=== PATIENT | male | born 1960 | race Caucasian/White ===

== ENCOUNTER 2022-01-21 08:55 | Inpatient (IN) | payer MEDICAID ==
[~2022-01-21] VITALS: Ht 210.8 cm; Wt 80.2 kg
[~2022-01-21 08:55] MED LIST: AMIT-189 PO; ARIP2TAB37 PO; ATOR10TA PO; BACL10TA PO; GABA-530 PO; IRON; LEVO88TA2 PO; SODI650T29 PO
[2022-01-21] MEDS ORDERED: normal saline 1000ML IV soln IVB ONE (09:15)
--- NOTE | 2022-01-21 09:15 | NUR ---
PROVIDER AT BEDSIDE.
--- NOTE | 2022-01-21 09:27 | NUR ---
xray at bedside.
--- NOTE | 2022-01-21 09:40 | NUR ---
pt to/from ct without incident.
[2022-01-21 09:48] LABS: BASOPHILS % (AUTO) 0.1 % (0-1); EOSINOPHILS # (AUTO) 0.2 X10'3 (0-0.9); EOSINOPHILS % (AUTO) 0.9 % (0-6); HEMATOCRIT 37.8 % (42.0-52.0); HEMOGLOBIN 12.6 g/dl (14.0-17.9); LYMPHOCYTES # (AUTO) 1.8 X10'3 (1.1-4.8); LYMPHOCYTES % (AUTO) 7.8 % (21-51); MEAN CORPUSCULAR HEMOGLOBIN 28.3 PG (27.0-31.0); MEAN CORPUSCULAR HGB CONC 33.4 g/dL (33.0-36.5); MEAN CORPUSCULAR VOLUME 84.7 FL (78-98); MONOCYTES # (AUTO) 1.9 X10'3 (0-0.9); NEUTROPHILS # (AUTO) 19.5 X10'3 (1.8-7.7); NEUTROPHILS % (AUTO) 83.2 % (42-75); PLATELET COUNT 317 X10'3 (140-440); RED BLOOD COUNT 4.46 X10'6 (4.70-6.10); WHITE BLOOD COUNT 23.5 X10'3 (4.5-11.0)
[2022-01-21 09:55] LABS: ALANINE AMINOTRANSFERASE 18 U/L (12-78); ALBUMIN 3.3 G/DL (3.4-5.0); ALBUMIN/GLOBULIN RATIO 0.6 (1.1-1.5); ALKALINE PHOSPHATASE 87 IU/L (46-116); ANION GAP 12 (8-16); ASPARTATE AMINO TRANSFERASE 23 U/L (10-37); BILIRUBIN,TOTAL 0.7 MG/DL (0.1-1.0); BLOOD UREA NITROGEN 35 MG/DL (7-18); BUN/CREATININE RATIO 19.7 (5.4-32.0); CHLORIDE 100 MMOL/L (99-107); CREATININE 1.78 MG/DL (0.60-1.10); GLUCOSE 97 MG/DL (70-104); POTASSIUM 4.8 MMOL/L (3.5-5.1); SODIUM 134 MMOL/L (135-145); TOTAL CARBON DIOXIDE 21.6 MMOL/L (24-32); TOTAL PROTEIN 8.8 G/DL (6.4-8.2); eGFR 39 ML/MIN
--- NOTE | 2022-01-21 10:20 | NUR ---
unable to advance arteaga cath past meatus, condom cath placed. provider informed. pt had small bm, himanshu care given with new brief placed.
[2022-01-21] MEDS ORDERED: normal saline 1000ML IV soln IV ONE (10:55)
[2022-01-21] MEDS ORDERED: ciprofloxacin lact 400MG/200ML 200 ML IV ONE (10:55)
[2022-01-21] MEDS ORDERED: metroNIDAZOLE-Flagyl 500mg/NS 100 ML IV STA (10:55)
--- NOTE | 2022-01-21 10:55 | NUR ---
attempted to call caregiver for information, left voicemail.
[2022-01-21] MEDS ORDERED: morphine 4 MG/ML inj SYRINge IV ONE (11:00)
[2022-01-21] MEDS ORDERED: ondansetron/PF 4mg/2ml inj IV ONE (11:00)
[2022-01-21 11:11] LABS: LIPASE < 50 U/L (73-393)
[2022-01-21] MEDS ORDERED: ondansetron 4mg rapidly disintigrating tab PO PRN (11:20)
[2022-01-21] MEDS ORDERED: mag hydrox/Alum hydrox/simeth 30ml oral suspension PO PRN (11:20)
[2022-01-21] MEDS ORDERED: morphine 2 MG/ML inj. syringe IV PRN ×2 (11:20)
[2022-01-21] MEDS ORDERED: bisacodyl 10mg suppository rectal RC PRN (11:20)
[2022-01-21] MEDS ORDERED: acetaminophen 650mg rectal suppository RC PRN (11:20)
[2022-01-21] MEDS ORDERED: magnesium Cl slow-release 64mg tablet PO PRN (11:20)
[2022-01-21] MEDS ORDERED: potassium CL 10mEq/100ml bag 100 ML IV PRN (11:20)
[2022-01-21] MEDS ORDERED: POTASSIUM BICARB 20meq eff tab 20 MEQ TABLET.EFF PO PRN ×2 (11:20)
[2022-01-21] MEDS ORDERED: magnesium 4gm in 100ml NS 100 ML IV PRN (11:20)
[2022-01-21] MEDS ORDERED: acetaminophen 325mg tablet PO PRN ×2 (11:20)
[2022-01-21] MEDS ORDERED: HYDROcodone/acetaminophen 10/325mg tab PO PRN (11:20)
[2022-01-21] MEDS ORDERED: magnesium hydroxide 30ml (MOM) UD suspension PO PRN (11:20)
[2022-01-21] MEDS ORDERED: magnesium 2GM in 50ml NS 50 ML IV PRN (11:20)
[2022-01-21] MEDS: normal saline 1000ml 1,000 ML IV SCH (11:20)
[2022-01-21] MEDS ORDERED: ondansetron/PF 4mg/2ml inj IV PRN (11:20)
--- NOTE | 2022-01-21 11:57 | NUR ---
dr rogers at bedside.
--- NOTE | 2022-01-21 12:23 | NUR ---
spoke to yunior gibson,pt's provider [facility] worker,as per yunior pt was diagnosed with dementia 1 year ago and was taking aricept and pt stopped taking 3 months ago.pt is other pedraza alert orietened ,take care of himself and from 4 days was detoriating c/o abd pain,n/v/d but refusing to come to er . sbar to rosmery remy . yunior shen phone no [phone] for any further question.
[2022-01-21 12:35] LABS: APTT 45 SECONDS (22-32)
[2022-01-21 13:19] LABS: CLARITY,URINE CLOUDY (Clear); GLUCOSE, URINE NEGATIVE (Neg); KETONES,URINE NEGATIVE (Neg); LEUKOCYTE ESTERASE ,URINE NEGATIVE (Neg); NITRITES, URINE NEGATIVE (Neg); OCCULT BLOOD,URINE MODERATE (Neg); PH,URINE 5.5 (4.8-8.0); PROTEIN,URINE 30 mg/dl (Neg); UROBILINOGEN,URINE 0.2 E.U/dL (0.2-1.0)
[2022-01-21 13:20] LABS: COLOR,URINE DARK YELLOW (Yellow); UA COLLECTION TYPE STRAIGHT CATH
[2022-01-21 13:33] LABS: BACTERIA,URINE FEW /HPF (Neg); WBC,URINE 0-4 /HPF (0-4)
[2022-01-21 13:34] LABS: FINE GRANULAR CAST 0-3 /LPF (NEGATIVE); RENAL CELLS, URINE FEW /HPF; SQUAMOUS EPITHELIAL CELL,UR FEW /LPF (FEW)
[2022-01-21 13:44] LABS: MAGNESIUM 2.4 MG/DL (1.5-2.4)
[2022-01-21] MEDS ORDERED: LISI20TA28 PO (15:03)
[2022-01-21] MEDS ORDERED: BUPR300T86 PO (15:03)
[2022-01-21] MEDS ORDERED: ATOR40TA72 PO (15:03)
[2022-01-21] MEDS ORDERED: FERR325T29 PO (15:03)
[2022-01-21] MEDS ORDERED: OMEP20CA16 PO (15:03)
[2022-01-21] MEDS ORDERED: DONE10TA44 PO (15:03)
[2022-01-21] MEDS ORDERED: [UNRECOGNIZED DRUG - CODE] PO ×2 (15:03)
[2022-01-21] MEDS ORDERED: CHOL20002 PO (15:03)
[2022-01-21] MEDS ORDERED: LEVO75TA7 PO (15:03)
[2022-01-21] MEDS ORDERED: LORA10TA7 PO (15:03)
[2022-01-21] MEDS ORDERED: CETI10TA14 PO (15:03)
[2022-01-21] MEDS ORDERED: DULO30CA52 PO (15:03)
[2022-01-21] MEDS: metroNIDAZOLE-Flagyl 500mg/NS 100 ML IV SCH (16:18)
--- NOTE | 2022-01-21 16:33 | NUR ---
per dr. Wasserman- for surgical consents, please call pt's brothers... Leland Wilkerson [phone] Isaac Raymundo [phone]
[2022-01-21] MEDS ORDERED: PERFLUTREN PROTEIN-A MICROSPHR (Optison) 0.22 MG/ML 3ML VIAL IV ONE (16:35)
--- NOTE | 2022-01-21 18:33 | NUR ---
telephone report to LIZBET Black
[2022-01-21 19:00] VITALS: BP 118/62
[2022-01-21] MEDS: docusate sod 100mg capsule PO SCH (20:00)
[2022-01-21] MEDS: buPROPion SR 150mg tablet PO SCH ×2 (20:00→20:35)
[2022-01-21] MEDS: K and/or MAG REPLACEMENT MC SCH (20:00)
[2022-01-21] MEDS: PSYLLIUM HUSK 0.4 GM PO SCH (20:29)
[2022-01-21] MEDS: ciprofloxacin lact 400MG/200ML 200 ML IV SCH (20:34)
[2022-01-21] MEDS: donepezil 5mg tablet PO SCH ×2 (20:35→21:00)
[2022-01-21] MEDS ORDERED: temazepam 15mg capsule PO PRN (21:00)
[2022-01-21 22:00] VITALS: BP 119/66
[2022-01-22] VITALS (32 sets, daily range): BP systolic 118–151; BP diastolic 63–78
--- NOTE | 2022-01-22 00:26 | NUR ---
2030.. PATIENT GIVEN A SIP OF WATER PRIOR TO GIVING HS MEDS AND COUGHED IMMEDIATELY AFTER, ATTEMPTED TO HAVE HIM USE A STRAW, BUT NOT ABLE TO FOLLOW INSTRUCTIONS AND WASN'T ABLE TO SUCK UP WATER INTO HIS MOUTH. D/T PATIENT'S MENTATION, MADE HIM NPO NOW UNTIL MORE ALERT
--- NOTE | 2022-01-22 00:30 | NUR ---
DR. QUICK IN EARLIER TO TALK TO PATIENT ABOUT SURG FOR REMOVAL OF HIS GALLBLADDER. PATIENT OPENS HIS EYES TO NAME/VOICE, BUT FALLS BACK TO SLEEP ALMOST IMMEDIATELY AND NOT ABLE TO PROVIDE INFORMATION FOR THE MD. ATTEMPTED TO FIND ONE WHO CAN SIGN THE PATIENT'S SURGICAL CONSENT. RISHABH PATIENT'S CAREGIVER SUGGESTED TO CALL MABEL, THE PATIENT'S SON, BUT HE INFORMED DR. ROSA THAT HIS BROTHER ENRRIQUE HAS POA. ATTEMPTED TO CALL AND GET CONSENT FOR SURGERY BUT NO ANSWER. PHONE NUMBER LEFT FOR A RETURN CALL BACK TO DR. QUICK.
[2022-01-22] MEDS: metroNIDAZOLE-Flagyl 500mg/NS 100 ML IV SCH ×4 (01:36→23:35)
[2022-01-22] MEDS: normal saline 1000ml 1,000 ML IV SCH ×3 (01:36→16:50)
[2022-01-22 06:28] LABS: HEMOGLOBIN 10.1 g/dl (14.0-17.9); WHITE BLOOD COUNT 12.3 X10'3 (4.5-11.0)
[2022-01-22 06:31] LABS: BASOPHILS % (AUTO) 0.3 % (0-1); EOSINOPHILS # (AUTO) 0.3 X10'3 (0-0.9); EOSINOPHILS % (AUTO) 2.7 % (0-6); HEMATOCRIT 30.5 % (42.0-52.0); LYMPHOCYTES # (AUTO) 1.1 X10'3 (1.1-4.8); LYMPHOCYTES % (AUTO) 9.3 % (21-51); MEAN CORPUSCULAR HGB CONC 33.2 g/dL (33.0-36.5); MEAN CORPUSCULAR VOLUME 84.4 FL (78-98); MEAN PLATELET VOLUME 7.1 FL (7.4-10.4); MONOCYTES # (AUTO) 1.1 X10'3 (0-0.9); MONOCYTES % (AUTO) 8.8 % (2-12); NEUTROPHILS # (AUTO) 9.7 X10'3 (1.8-7.7); NEUTROPHILS % (AUTO) 78.9 % (42-75); PLATELET COUNT 251 X10'3 (140-440); RED BLOOD COUNT 3.61 X10'6 (4.70-6.10); RED CELL DISTRIBUTION WIDTH 15.1 % (11.5-14.5)
--- NOTE | 2022-01-22 06:34 | NUR ---
Problems reprioritized. Patient report given, questions answered & plan of care reviewed with CARIDAD SOMERS.
--- NOTE | 2022-01-22 06:49 | NUR ---
Patient in room ORTHO 4022. I have received report from LIZBET Black and had the opportunity to ask questions and assume patient care.
[2022-01-22] MEDS ORDERED: levoTHYROXINE 75mcg tablet PO SCH (07:00)
[2022-01-22] MEDS ORDERED: ROPIVAcaine 0.5% (5mg/ml) 30ml vial ONE (07:20)
[2022-01-22 07:30] LABS: ALANINE AMINOTRANSFERASE 37 U/L (12-78); ALBUMIN 2.4 G/DL (3.4-5.0); ALBUMIN/GLOBULIN RATIO 0.5 (1.1-1.5); ALKALINE PHOSPHATASE 114 IU/L (46-116); ANION GAP 12 (8-16); ASPARTATE AMINO TRANSFERASE 45 U/L (10-37); BILIRUBIN,TOTAL 0.6 MG/DL (0.1-1.0); BLOOD UREA NITROGEN 23 MG/DL (7-18); BUN/CREATININE RATIO 18.3 (5.4-32.0); CALCIUM 7.9 MG/DL (8.5-10.1); CHLORIDE 110 MMOL/L (99-107); CREATININE 1.26 MG/DL (0.60-1.10); GLUCOSE 82 MG/DL (70-104); MAGNESIUM 2.2 MG/DL (1.5-2.4); POTASSIUM 3.7 MMOL/L (3.5-5.1); SODIUM 140 MMOL/L (135-145); TOTAL CARBON DIOXIDE 17.8 MMOL/L (24-32); TOTAL PROTEIN 6.8 G/DL (6.4-8.2); eGFR 58 ML/MIN
--- NOTE | 2022-01-22 07:50 | NUR ---
Pt transported to OR on hospital bed. Belongings left in room 2280O
[2022-01-22] MEDS: ciprofloxacin lact 400MG/200ML 200 ML IV SCH ×2 (08:00→19:19)
[2022-01-22] MEDS: buPROPion SR 150mg tablet PO SCH ×2 (08:00→19:20)
[2022-01-22] MEDS: lisinopril 20mg tablet PO SCH (08:00)
[2022-01-22] MEDS: docusate sod 100mg capsule PO SCH ×2 (08:00→19:22)
[2022-01-22] MEDS: PSYLLIUM HUSK 0.4 GM PO SCH ×2 (08:00→19:22)
[2022-01-22] MEDS: pantoprazole 40mg Tablet.DR PO SCH (08:00)
[2022-01-22] MEDS: duloxetine 30mg CAPSULE.DR PO SCH (08:00)
[2022-01-22] MEDS: K and/or MAG REPLACEMENT MC SCH ×2 (08:00→19:22)
[2022-01-22] MEDS ORDERED: sevoflurane 250ml liquid IH ONE (08:01)
[2022-01-22] MEDS ORDERED: ringers solution, lacted 1,000 ML IV SCH (08:05)
[2022-01-22] MEDS ORDERED: labetalol 20mg/4ml (5mg/ml) syringe IV PRN (08:05)
[2022-01-22] MEDS ORDERED: hydrALAZINE 20mg/ml inj. IV PRN (08:05)
[2022-01-22] MEDS ORDERED: morphine 4 MG/ML inj SYRINge IV PRN (08:05)
[2022-01-22] MEDS ORDERED: acetaminophen 1,000mg/100ml IV 100 ML IV PRN (08:05)
[2022-01-22] MEDS ORDERED: meperidine/PF 25mg/ml syringe IV PRN (08:05)
[2022-01-22] MEDS ORDERED: morphine 2 MG/ML inj. syringe IV PRN (08:05)
[2022-01-22] MEDS ORDERED: proCHLORperazine 10 MG/2 ml inj IV PRN (08:05)
[2022-01-22] MEDS ORDERED: HYDROmorphone/PF 0.2 MG/ML SYRINGE IV PRN ×2 (08:05)
[2022-01-22] MEDS ORDERED: ondansetron/PF 4mg/2ml inj IV PRN (08:05)
[2022-01-22] MEDS ORDERED: rocuronium 10mg/ml inj IV ONE ×2 (08:31→09:49)
[2022-01-22] MEDS ORDERED: ondansetron/PF 4mg/2ml inj ONE (08:31)
[2022-01-22] MEDS ORDERED: LIDOcaine 1%/PF 5ML 10 MG/ML VIAL ONE ×2 (08:31)
[2022-01-22] MEDS ORDERED: propofol inj 20 ML IV ONE (08:31)
[2022-01-22] MEDS ORDERED: fentaNYL /PF 50mcg/ml 5ml ampule ONE (08:31)
[2022-01-22] MEDS ORDERED: dexamethasone sod phosphate 4mg/ml inj. ONE (08:31)
[2022-01-22] MEDS ORDERED: sugammadex 200mg/2ml injection IV ONE (09:50)
[2022-01-22] MEDS ORDERED: morphine 4 MG/ML inj SYRINge ONE (10:00)
--- NOTE | 2022-01-22 10:12 | NUR ---
Received from OR via BED, 18G TO LEFT AC WITH LR, ABD LAP SITES X 3 WITH DELMIS AND STERI STRIPS, DSG TO RIGHT ABD WITH MIN DRAINAGE, MICEHLLE RIGHT WITH BLOODY DRAINAGE, CONDOM CATH WITH YELLOW URINE. , accompanied by Anesthesiologist DR MCGEE AND TERI SOMERS OR and report given by Anesthesiolgist. Addendum: 01/22/22 at 1037 by Patsy Colunga RN Amended: Links added.
--- NOTE | 2022-01-22 11:49 | NUR ---
Noted pt low BMI 18.4 however current ht 83in not accurate true ht hx 69in and pending first scaled wt this admit. Current BMI using true ht and non-scaled wt 26.7 at this time. Addendum: 01/22/22 at [address] Amended: Links added.
--- NOTE | 2022-01-22 11:53 | NUR ---
Report called to LIZBET Casas in CICU
--- NOTE | 2022-01-22 12:16 | NUR ---
PT RETURNED TO RECOVERY ROOM ROOM WAS NOT CLEANED IN ICU. WILL CONTINUE TO MONITOR PER RR ORDERS Addendum: 01/22/22 at 1240 by Patsy Colunga RN Amended: Links added.
--- NOTE | 2022-01-22 12:52 | NUR ---
PATIENT HAS MET ALL CRITERIA FOR TRANSFER TO ICU FLOOR. VSS. DRESSINGS INTACT. BED LOW, CALL LIGHT PRESENT AND 2 RAILS UP. RN PRESENT TO ACCEPT CARE OF PATIENT AND REPORT HAS BEEN CALLED. ALL QUESTIONS ANSWERED TO ACCEPTING RN. Addendum: 01/22/22 at 1255 by Patsy Colunga RN Amended: Links added.
--- NOTE | 2022-01-22 13:01 | NUR ---
Dr. Maldonado notified of patient's arrival. States he will see him in 30-60 minutes. Pt is doing very well, no immediate needs identified.
[2022-01-22 15:32] LABS: BASOPHILS % (AUTO) 0.1 % (0-1); EOSINOPHILS % (AUTO) 0.1 % (0-6); HEMATOCRIT 28.6 % (42.0-52.0); HEMOGLOBIN 9.7 g/dl (14.0-17.9); LYMPHOCYTES # (AUTO) 0.4 X10'3 (1.1-4.8); LYMPHOCYTES % (AUTO) 3.8 % (21-51); MEAN CORPUSCULAR HGB CONC 34.1 g/dL (33.0-36.5); MEAN CORPUSCULAR VOLUME 85.1 FL (78-98); MEAN PLATELET VOLUME 6.8 FL (7.4-10.4); MONOCYTES # (AUTO) 0.3 X10'3 (0-0.9); MONOCYTES % (AUTO) 3.4 % (2-12); NEUTROPHILS # (AUTO) 8.9 X10'3 (1.8-7.7); NEUTROPHILS % (AUTO) 92.6 % (42-75); PLATELET COUNT 243 X10'3 (140-440); RED BLOOD COUNT 3.36 X10'6 (4.70-6.10); RED CELL DISTRIBUTION WIDTH 15.3 % (11.5-14.5); WHITE BLOOD COUNT 9.6 X10'3 (4.5-11.0)
[2022-01-22 15:43] LABS: ALANINE AMINOTRANSFERASE 63 U/L (12-78); ALBUMIN 2.3 G/DL (3.4-5.0); ALBUMIN/GLOBULIN RATIO 0.5 (1.1-1.5); ALKALINE PHOSPHATASE 108 IU/L (46-116); ANION GAP 11 (8-16); ASPARTATE AMINO TRANSFERASE 102 U/L (10-37); BILIRUBIN,TOTAL 0.5 MG/DL (0.1-1.0); BLOOD UREA NITROGEN 22 MG/DL (7-18); CALCIUM 8.1 MG/DL (8.5-10.1); CHLORIDE 109 MMOL/L (99-107); CREATININE 1.16 MG/DL (0.60-1.10); GLUCOSE 136 MG/DL (70-104); MAGNESIUM 2.1 MG/DL (1.5-2.4); PHOSPHORUS 4.2 MG/DL (2.3-4.5); POTASSIUM 4.3 MMOL/L (3.5-5.1); SODIUM 141 MMOL/L (135-145); TOTAL CARBON DIOXIDE 21.1 MMOL/L (24-32); TOTAL PROTEIN 6.7 G/DL (6.4-8.2); eGFR 64 ML/MIN
--- NOTE | 2022-01-22 18:22 | NUR ---
Problems reprioritized. Patient report given, questions answered & plan of care reviewed with Beverley SOMERS.
[2022-01-22] MEDS: donepezil 5mg tablet PO SCH (19:20)
[2022-01-23] VITALS (12 sets, daily range): BP systolic 130–163; BP diastolic 69–87
[2022-01-23] MEDS: HYDROcodone/acetaminophen 5mg/325mg tablet PO PRN ×2 (03:09→23:52)
[2022-01-23] MEDS: normal saline 1000ml 1,000 ML IV SCH ×3 (03:09→19:21)
[2022-01-23 06:46] LABS: BASOPHILS % (AUTO) 0.1 % (0-1); EOSINOPHILS % (AUTO) 0 % (0-6); HEMATOCRIT 27.1 % (42.0-52.0); HEMOGLOBIN 9.2 g/dl (14.0-17.9); LYMPHOCYTES # (AUTO) 0.6 X10'3 (1.1-4.8); LYMPHOCYTES % (AUTO) 9.1 % (21-51); MEAN CORPUSCULAR HGB CONC 33.9 g/dL (33.0-36.5); MEAN CORPUSCULAR VOLUME 85.5 FL (78-98); MONOCYTES # (AUTO) 0.4 X10'3 (0-0.9); NEUTROPHILS # (AUTO) 5.7 X10'3 (1.8-7.7); NEUTROPHILS % (AUTO) 84.8 % (42-75); PLATELET COUNT 265 X10'3 (140-440); RED BLOOD COUNT 3.17 X10'6 (4.70-6.10); WHITE BLOOD COUNT 6.7 X10'3 (4.5-11.0)
[2022-01-23 06:52] LABS: ALANINE AMINOTRANSFERASE 65 U/L (12-78); ALBUMIN 2.3 G/DL (3.4-5.0); ALBUMIN/GLOBULIN RATIO 0.5 (1.1-1.5); ALKALINE PHOSPHATASE 110 IU/L (46-116); ANION GAP 10 (8-16); ASPARTATE AMINO TRANSFERASE 71 U/L (10-37); BILIRUBIN,TOTAL 0.3 MG/DL (0.1-1.0); BLOOD UREA NITROGEN 23 MG/DL (7-18); BUN/CREATININE RATIO 21.3 (5.4-32.0); CALCIUM 7.8 MG/DL (8.5-10.1); CHLORIDE 111 MMOL/L (99-107); CREATININE 1.08 MG/DL (0.60-1.10); GLUCOSE 140 MG/DL (70-104); MAGNESIUM 2.1 MG/DL (1.5-2.4); SODIUM 143 MMOL/L (135-145); TOTAL CARBON DIOXIDE 21.9 MMOL/L (24-32); TOTAL PROTEIN 6.6 G/DL (6.4-8.2); eGFR 69 ML/MIN
[2022-01-23] MEDS: ciprofloxacin lact 400MG/200ML 200 ML IV SCH ×2 (07:53→20:03)
[2022-01-23] MEDS: metroNIDAZOLE-Flagyl 500mg/NS 100 ML IV SCH ×3 (07:53→23:52)
[2022-01-23] MEDS: levoTHYROXINE 75mcg tablet PO SCH (07:57)
[2022-01-23] MEDS: docusate sod 100mg capsule PO SCH ×2 (07:57→19:21)
[2022-01-23] MEDS: buPROPion SR 150mg tablet PO SCH ×2 (07:57→19:21)
[2022-01-23] MEDS: duloxetine 30mg CAPSULE.DR PO SCH (07:57)
[2022-01-23] MEDS: pantoprazole 40mg Tablet.DR PO SCH (07:57)
[2022-01-23] MEDS: lisinopril 20mg tablet PO SCH (07:58)
[2022-01-23] MEDS: PSYLLIUM HUSK 0.4 GM PO SCH ×2 (08:00→21:00)
[2022-01-23] MEDS: K and/or MAG REPLACEMENT MC SCH ×2 (08:00→19:15)
[2022-01-23] MEDS: donepezil 5mg tablet PO SCH (21:17)
--- NOTE | 2022-01-23 22:34 | NUR ---
Received report from LIZBET Casas. Awaiting patient arrival to the floor.
--- NOTE | 2022-01-23 22:45 | NUR ---
Pt transferred to room 2006 in with all his belongings. No issues in transport. Transported to bed by myself and ICU aide. new bedside RN had no further questions regarding pt. He did ooze from his MICHELLE site after getting up and down multiple times but this had happened on dayshift I was told. Offered to change enoch beck RN said she'd take care of it.
[2022-01-24 06:00] VITALS: BP 142/46
[2022-01-24 06:11] LABS: BASOPHILS % (AUTO) 0.1 % (0-1); EOSINOPHILS % (AUTO) 0.1 % (0-6); HEMATOCRIT 25.1 % (42.0-52.0); HEMOGLOBIN 8.5 g/dl (14.0-17.9); LYMPHOCYTES # (AUTO) 1.4 X10'3 (1.1-4.8); LYMPHOCYTES % (AUTO) 23.7 % (21-51); MEAN CORPUSCULAR HEMOGLOBIN 28.8 PG (27.0-31.0); MEAN CORPUSCULAR VOLUME 84.6 FL (78-98); MEAN PLATELET VOLUME 6.7 FL (7.4-10.4); MONOCYTES # (AUTO) 0.4 X10'3 (0-0.9); MONOCYTES % (AUTO) 6.5 % (2-12); NEUTROPHILS # (AUTO) 4.1 X10'3 (1.8-7.7); NEUTROPHILS % (AUTO) 69.6 % (42-75); PLATELET COUNT 273 X10'3 (140-440); RED BLOOD COUNT 2.97 X10'6 (4.70-6.10); RED CELL DISTRIBUTION WIDTH 15.1 % (11.5-14.5); WHITE BLOOD COUNT 5.9 X10'3 (4.5-11.0)
[2022-01-24 06:25] LABS: ALANINE AMINOTRANSFERASE 47 U/L (12-78); ALBUMIN 2.2 G/DL (3.4-5.0); ALBUMIN/GLOBULIN RATIO 0.6 (1.1-1.5); ALKALINE PHOSPHATASE 83 IU/L (46-116); ANION GAP 8 (8-16); ASPARTATE AMINO TRANSFERASE 42 U/L (10-37); BILIRUBIN,TOTAL 0.2 MG/DL (0.1-1.0); BLOOD UREA NITROGEN 22 MG/DL (7-18); BUN/CREATININE RATIO 22.4 (5.4-32.0); CALCIUM 7.6 MG/DL (8.5-10.1); CHLORIDE 114 MMOL/L (99-107); CREATININE 0.98 MG/DL (0.60-1.10); GLUCOSE 100 MG/DL (70-104); POTASSIUM 3.6 MMOL/L (3.5-5.1); SODIUM 145 MMOL/L (135-145); TOTAL CARBON DIOXIDE 22.6 MMOL/L (24-32); TOTAL PROTEIN 6.1 G/DL (6.4-8.2); eGFR 77 ML/MIN
--- NOTE | 2022-01-24 06:51 | NUR ---
Problems reprioritized. Patient report given, questions answered & plan of care reviewed with LIZBET Mujica.
[2022-01-24] MEDS: ciprofloxacin lact 400MG/200ML 200 ML IV SCH (08:00)
[2022-01-24] MEDS: PSYLLIUM HUSK 0.4 GM PO SCH ×2 (08:00→20:41)
[2022-01-24] MEDS: K and/or MAG REPLACEMENT MC SCH ×2 (08:51→20:00)
[2022-01-24] MEDS: pantoprazole 40mg Tablet.DR PO SCH (09:03)
[2022-01-24] MEDS: metroNIDAZOLE-Flagyl 500mg/NS 100 ML IV SCH (09:03)
[2022-01-24] MEDS: docusate sod 100mg capsule PO SCH ×2 (09:03→20:41)
[2022-01-24] MEDS: lisinopril 20mg tablet PO SCH (09:04)
[2022-01-24] MEDS: duloxetine 30mg CAPSULE.DR PO SCH (09:04)
[2022-01-24] MEDS: levoTHYROXINE 75mcg tablet PO SCH (09:11)
[2022-01-24] MEDS: normal saline 1000ml 1,000 ML IV SCH ×2 (09:20→19:20)
[2022-01-24] MEDS: buPROPion SR 150mg tablet PO SCH ×2 (11:33→20:42)
--- NOTE | 2022-01-24 12:45 | NUR ---
CALLED SURGEON DUE TO ARELI BLOOD DRIPPING ON THE FLOOR FROM MICHELLE SITE, ORDERS RECEIVED.
[2022-01-24 13:47] LABS: BASOPHILS % (AUTO) 0.3 % (0-1); EOSINOPHILS # (AUTO) 0.1 X10'3 (0-0.9); EOSINOPHILS % (AUTO) 0.9 % (0-6); HEMATOCRIT 28.1 % (42.0-52.0); HEMOGLOBIN 9.2 g/dl (14.0-17.9); LYMPHOCYTES # (AUTO) 1.9 X10'3 (1.1-4.8); LYMPHOCYTES % (AUTO) 27.2 % (21-51); MEAN CORPUSCULAR HEMOGLOBIN 27.7 PG (27.0-31.0); MEAN CORPUSCULAR HGB CONC 32.9 g/dL (33.0-36.5); MEAN CORPUSCULAR VOLUME 84.4 FL (78-98); MEAN PLATELET VOLUME 6.5 FL (7.4-10.4); MONOCYTES # (AUTO) 0.5 X10'3 (0-0.9); MONOCYTES % (AUTO) 7.2 % (2-12); NEUTROPHILS # (AUTO) 4.5 X10'3 (1.8-7.7); NEUTROPHILS % (AUTO) 64.4 % (42-75); PLATELET COUNT 396 X10'3 (140-440); RED BLOOD COUNT 3.33 X10'6 (4.70-6.10); RED CELL DISTRIBUTION WIDTH 15.4 % (11.5-14.5)
--- NOTE | 2022-01-24 18:16 | NUR ---
Problems reprioritized. Patient report given, questions answered & plan of care reviewed with CHELO SOMERS.
[2022-01-24 18:30] VITALS: BP 142/81
--- NOTE | 2022-01-24 20:00 | NUR ---
Pt is taking oral fluids & food well. Will leave saline locked for now.
[2022-01-24] MEDS: donepezil 5mg tablet PO SCH (20:42)
[2022-01-24 22:00] VITALS: BP 153/83
[2022-01-24] MEDS: ciprofloxacin 250mg tablet PO SCH (22:23)
[2022-01-24] MEDS: HYDROcodone/acetaminophen 5mg/325mg tablet PO PRN (22:28)
[2022-01-24] MEDS: metroNIDAZOLE 500mg tablet PO SCH (23:12)
[2022-01-25] MEDS: normal saline 1000ml 1,000 ML IV SCH (05:20)
--- NOTE | 2022-01-25 06:34 | NUR ---
Problems reprioritized. Patient report given, questions answered & plan of care reviewed with Sil. Addendum: 01/25/22 at 0634 by Luis Sahni RN Amended: Links added.
[2022-01-25 06:58] VITALS: BP 155/86
[2022-01-25] MEDS: levoTHYROXINE 75mcg tablet PO SCH (07:00)
[2022-01-25 07:15] LABS: BASOPHILS % (AUTO) 0.7 % (0-1); EOSINOPHILS # (AUTO) 0.2 X10'3 (0-0.9); EOSINOPHILS % (AUTO) 3.5 % (0-6); HEMATOCRIT 27.1 % (42.0-52.0); HEMOGLOBIN 8.9 g/dl (14.0-17.9); LYMPHOCYTES # (AUTO) 1.9 X10'3 (1.1-4.8); LYMPHOCYTES % (AUTO) 37.7 % (21-51); MEAN CORPUSCULAR HEMOGLOBIN 27.6 PG (27.0-31.0); MEAN CORPUSCULAR HGB CONC 32.6 g/dL (33.0-36.5); MEAN CORPUSCULAR VOLUME 84.6 FL (78-98); MEAN PLATELET VOLUME 6.3 FL (7.4-10.4); MONOCYTES # (AUTO) 0.4 X10'3 (0-0.9); MONOCYTES % (AUTO) 7.8 % (2-12); NEUTROPHILS # (AUTO) 2.5 X10'3 (1.8-7.7); NEUTROPHILS % (AUTO) 50.3 % (42-75); PLATELET COUNT 361 X10'3 (140-440); RED BLOOD COUNT 3.21 X10'6 (4.70-6.10); RED CELL DISTRIBUTION WIDTH 15.8 % (11.5-14.5)
[2022-01-25 07:30] LABS: ALANINE AMINOTRANSFERASE 40 U/L (12-78); ALBUMIN 2.3 G/DL (3.4-5.0); ALBUMIN/GLOBULIN RATIO 0.6 (1.1-1.5); ALKALINE PHOSPHATASE 75 IU/L (46-116); ANION GAP 9 (8-16); ASPARTATE AMINO TRANSFERASE 30 U/L (10-37); BILIRUBIN,TOTAL 0.3 MG/DL (0.1-1.0); BLOOD UREA NITROGEN 19 MG/DL (7-18); BUN/CREATININE RATIO 18.3 (5.4-32.0); CALCIUM 7.7 MG/DL (8.5-10.1); CHLORIDE 111 MMOL/L (99-107); CREATININE 1.04 MG/DL (0.60-1.10); GLUCOSE 82 MG/DL (70-104); MAGNESIUM 1.7 MG/DL (1.5-2.4); POTASSIUM 3.9 MMOL/L (3.5-5.1); SODIUM 144 MMOL/L (135-145); TOTAL CARBON DIOXIDE 24.1 MMOL/L (24-32); eGFR 72 ML/MIN
[2022-01-25] MEDS: PSYLLIUM HUSK 0.4 GM PO SCH (08:00)
[2022-01-25] MEDS: pantoprazole 40mg Tablet.DR PO SCH (08:01)
[2022-01-25] MEDS: metroNIDAZOLE 500mg tablet PO SCH (08:01)
[2022-01-25] MEDS: docusate sod 100mg capsule PO SCH (08:01)
[2022-01-25 08:02] VITALS: BP_SYST 155
[2022-01-25] MEDS: lisinopril 20mg tablet PO SCH (08:02)
[2022-01-25] MEDS: duloxetine 30mg CAPSULE.DR PO SCH (08:02)
[2022-01-25] MEDS: buPROPion SR 150mg tablet PO SCH (08:02)
[2022-01-25] MEDS: K and/or MAG REPLACEMENT MC SCH (08:06)
--- NOTE | 2022-01-25 08:29 | NUR ---
Initial: Pt admitted w/ acute cholecystitis and DONALD, underwent laparoscopic cholecystectomy this admit per EMR. Previously on Full liquid diet w/ avg ~75% intake of meals, advanced to heart Healthy last night 01/24, pending first meal. Recommend liberalizing to Regular diet. LBM 01/24 receiving routine colace. Will continue to monitor and make recommendations as appropriate. Recs: 1. Consider liberalizing to Regular diet; monitor need for assistance w/ meals 2. Monitor need for ONS pending PO trends 3. Bowel care per rx 4. Weekly wt Addendum: 01/25/22 at [address] Amended: Links added.
[2022-01-25] MEDS: ciprofloxacin 250mg tablet PO SCH (11:57)
== END 2022-01-25 15:40 | disposition home or self-care (01) | DRG 710 ==
LOC: ER 08:56 → ED HOLD 11:24 → EDBEDREQ 18:17 → ORTHO 4S 19:05 → PACU 01-22 11:56 → CICU 2S 01-22 12:32 → ORTHO 4S 01-23 23:00
PROVIDERS: ADMIT Family Medicine; ATTEND Family Medicine
PROC: 0FT44ZZ Resection of Gallbladder, Percutaneous Endoscopic Approach (ICD-10-PCS; principal; 2022-01-22 08:13)
DX: A41.9 Sepsis, unspecified organism (principal); N17.0 Acute kidney failure with tubular necrosis; G93.41 Metabolic encephalopathy; E44.0 Moderate protein-calorie malnutrition; K80.00 Calculus of gallbladder with acute cholecystitis without obstruction; K82.A1 Gangrene of gallbladder in cholecystitis; E83.51 Hypocalcemia; E87.1 Hypo-osmolality and hyponatremia; I34.0 Nonrheumatic mitral (valve) insufficiency; D64.9 Anemia, unspecified; E03.9 Hypothyroidism, unspecified; E78.5 Hyperlipidemia, unspecified; G31.09 Other frontotemporal neurocognitive disorder; F02.80 Dementia in other diseases classified elsewhere, unspecified severity, without behavioral disturbance, psychotic disturbance, mood disturbance, and anxiety; E88.09 Other disorders of plasma-protein metabolism, not elsewhere classified; F32.A Depression, unspecified; I10 Essential (primary) hypertension; K21.9 Gastro-esophageal reflux disease without esophagitis; Z20.822 Contact with and (suspected) exposure to COVID-19; Z88.0 Allergy status to penicillin; Z88.2 Allergy status to sulfonamides; Z68.1 Body mass index [BMI] 19.9 or less, adult
CPT/HCPCS: 36415; 70450; 71045; 74176; 80053; 81001; 82140; 82948; 83605; 83690; 83735; 83880; 84100; 84145; 84443; 84484; 85025; 85610; 85730; 87040; 87081; 87635; 93306; 96365; 97116; 97161; 97530; 99285; A4215; A4618; A6258; A6402; A7000; G0378; J0131; J0744; J1100; J2270; J2405; J2704; J2795; J3010; J3490; J7030; J7040; J7120

== ENCOUNTER 2023-07-08 10:15 | Emergency (ER) | payer MEDICARE, MEDICAID ==
[~2023-07-08] VITALS: Ht 175.3 cm; Wt 77.3 kg
[~2023-07-08 10:15] MED LIST changes: -AMIT-189 PO; -ARIP2TAB37 PO; -ATOR10TA PO; +ATOR40TA72 PO; -BACL10TA PO; +BUPR300T86 PO; +CETI10TA14 PO; +CHOL20002 PO; +DONE10TA44 PO; +DULO30CA52 PO; +FERR325T29 PO; -GABA-530 PO; -IRON; +LEVO75TA7 PO; -LEVO88TA2 PO; +LISI20TA28 PO; +LORA10TA7 PO; +OMEP20CA16 PO; -SODI650T29 PO; +[UNRECOGNIZED DRUG - CODE] PO
[2023-07-08 10:52] VITALS: BP 162/83; PULSE 73; RESP 18; TEMP 97.8; O2SAT 99
[2023-07-08] MEDS ORDERED: acetaminophen 325mg tablet PO ONE (13:15)
--- NOTE | 2023-07-08 13:56 | NUR ---
PT LEFT WITHOUT DC INSTRUCTIONS
== END 2023-07-08 13:56 | disposition home or self-care (01) ==
LOC: ER 10:16
DX: S70.01XA Contusion of right hip, initial encounter (principal); M54.50 Low back pain, unspecified; R22.43 Localized swelling, mass and lump, lower limb, bilateral; I10 Essential (primary) hypertension; E03.9 Hypothyroidism, unspecified; Z79.899 Other long term (current) drug therapy; Z88.0 Allergy status to penicillin; Z88.1 Allergy status to other antibiotic agents; W19.XXXA Unspecified fall, initial encounter; Y93.89 Activity, other specified; Y92.89 Other specified places as the place of occurrence of the external cause; Y99.8 Other external cause status
CPT/HCPCS: 72170; 99283